=== PATIENT | male | born 1955 | race Caucasian/White ===

== ENCOUNTER 2018-08-28 05:30 | Inpatient (IN) | payer OTHER ==
[2018-08-28] MEDS: TRANEXAMIC ACID 1,000 MG in NS 100 ML INTRA-OP X1 IVPB (06:00)
[2018-08-28] MEDS: TRANEXAMIC ACID 1,000 MG in NS 100 ML PRE-OP X1 IVPB (06:00)
[2018-08-28] MEDS: CEFAZOLIN 1 GM/50 ML (PMX) 50 ML IVPB ×4 (06:00→23:50)
[2018-08-28] MEDS: HIP PAIN COCKTAIL (CEFUROXIME) INJ ×2 (06:00→08:22)
[2018-08-28] MEDS: ONDANSETRON 4 MG INJ IV ×4 (06:07→19:22)
[2018-08-28] MEDS: LANSOPRAZOLE 30 MG CAP PO (06:07)
[2018-08-28] MEDS: ACETAMINOPHEN 1000MG/100ML IV 100 ML IVPB (06:07)
[2018-08-28] MEDS: DEXAMETHASONE 4 MG/ML 1 ML INJ IV (06:07)
[2018-08-28] MEDS: oxyCODONE (CR) 10 MG TAB [oxyCONTIN] PO (06:08)
[2018-08-28] MEDS: LACTATED RINGER'S 1,000 ML IV* (06:09)
[2018-08-28] MEDS ORDERED: LIDOCAINE 2% (SDV) 5 ML INJ (07:29)
[2018-08-28] MEDS ORDERED: PROPOFOL 20 ML (07:29)
[2018-08-28] MEDS ORDERED: CEFAZOLIN 1 GM INJ (07:29)
[2018-08-28] MEDS ORDERED: DIPHENHYDRAMINE 50 MG INJ IV ×2 (08:00→12:00)
[2018-08-28] MEDS ORDERED: MAGNESIUM HYDROXIDE 30ML CUP PO (08:00)
[2018-08-28] MEDS ORDERED: oxyCODONE 5 MG TAB PO ×2 (08:00)
[2018-08-28] MEDS ORDERED: SENNA/DOCUSATE NA (8.6MG/50MG) TAB PO (08:00)
[2018-08-28] MEDS ORDERED: BETHANECHOL 25 MG TAB PO (08:00)
[2018-08-28] MEDS ORDERED: BISACODYL 10 MG SUPP PR (08:00)
[2018-08-28] MEDS ORDERED: NALOXONE (0.4 MG/ML) INJ IV (08:00)
[2018-08-28] MEDS: DOCUSATE SODIUM 100 MG CAP PO (08:00)
[2018-08-28] MEDS ORDERED: NA PHOSPHATE/BIPHOS 133 ML ENEMA PR (08:00)
[2018-08-28] MEDS ORDERED: EPHEDrine SULFATE 50 MG/5 ML SYG (08:08)
[2018-08-28] MEDS: BACITRACIN 50000 UNITS INJ IRR (08:21)
[2018-08-28] MEDS: POLYMYXIN B 500000 UNIT INJ (08:21)
[2018-08-28] MEDS: POLYMYXIN/BACITRACIN 1L IRRIG IRR (08:21)
[2018-08-28] MEDS ORDERED: POLYMYXIN/BACITRACIN 1L IRRIG (08:39)
[2018-08-28] MEDS: ASPIRIN (EC) 325 MG TAB PO ×3 (09:00→21:05)
[2018-08-28] MEDS: GABAPENTIN 100 MG CAP PO ×2 (09:00→21:05)
[2018-08-28] MEDS ORDERED: ROPIVACAINE 0.5 % 30 ML VIAL (09:28)
[2018-08-28] MEDS ORDERED: ONDANSETRON 4 MG INJ (09:29)
[2018-08-28] MEDS ORDERED: MEPERIDINE 25 MG INJ (10:20)
[2018-08-28] MEDS ORDERED: HYDROmorphONE 1 MG/ML SYG (10:30)
[2018-08-28] MEDS: FENTAnyl 50 MCG/ML VIAL IV ×8 (11:10→11:40)
[2018-08-28] MEDS: HYDROmorphONE 1 MG/5 ML IV SYRINGE IV ×5 (11:30→11:50)
[2018-08-28] MEDS ORDERED: LABETALOL HCL 20MG INJ IV ×2 (11:30→12:00)
[2018-08-28] MEDS ORDERED: ONDANSETRON 4 MG INJ IV ×2 (11:30→12:00)
[2018-08-28] MEDS ORDERED: EPHEDrine SULFATE 50 MG/5 ML SYG IV ×2 (11:30→12:00)
[2018-08-28] MEDS ORDERED: hydrALAzine 20 MG INJ IV ×2 (11:30→12:00)
[2018-08-28] MEDS ORDERED: MIDAZOLAM 1 MG/ML 2 ML INJ IV (12:00)
[2018-08-28] MEDS ORDERED: FENTAnyl 50 MCG/ML VIAL IV ×3 (12:00)
[2018-08-28] MEDS ORDERED: MEPERIDINE 25 MG INJ IV (12:00)
[2018-08-28] MEDS ORDERED: HYDROmorphONE 1 MG/5 ML IV SYRINGE IV ×3 (12:00)
[2018-08-28] MEDS ORDERED: METOCLOPRAMIDE 10 MG INJ IV (12:00)
[2018-08-28] MEDS ORDERED: OXYCODONE/ACETAMINOPHEN (5/325) TAB PO ×2 (12:00)
[2018-08-28] MEDS: SOD CHLORIDE 0.9% 1,000 ML IV ×2 (15:35→19:22)
[2018-08-28] MEDS: ATORVASTATIN 10 MG TAB PO (21:04)
[2018-08-28] MEDS: oxyCODONE 5 MG TAB PO (21:05)
[2018-08-29] MEDS: ONDANSETRON 4 MG INJ IV (01:37)
[2018-08-29 05:27] LABS: ADD MAN DIFF? NO
[2018-08-29 05:31] LABS: WHITE BLOOD COUNT 12.5 10^3/ul (4.8-10.8)
[2018-08-29 05:31] LABS: BASOPHILS % 0.1 % (0.0-2.0); HEMATOCRIT 33.4 % (42.0-52.0); HEMOGLOBIN 11.4 g/dl (14.0-18.0); LYMPHOCYTES # 1.4 10^3/ul (0.8-2.9); LYMPHOCYTES % 10.8 % (15.0-51.0); MEAN CORPUSCULAR HEMOGLOBIN 30.3 pg (29.0-33.0); MEAN CORPUSCULAR HGB CONC 34.1 g/dl (32.0-37.0); MEAN CORPUSCULAR VOLUME 88.8 fl (82.0-101.0); MEAN PLATELET VOLUME 10.1 fl (7.4-10.4); MONOCYTE # 0.8 10^3/ul (0.3-0.9); MONOCYTES % 6.6 % (0.0-11.0); NEUTROPHIL # 10.3 10^3/ul (1.6-7.5); NEUTROPHILS % 82.1 % (39.0-77.0); PLATELET COUNT 205 10^3/UL (140-415); RED BLOOD COUNT 3.76 10^6/ul (4.70-6.10); RED CELL DISTRIBUTION WIDTH 13.2 % (11.5-14.5)
[2018-08-29 06:35] LABS: ANION GAP 10 (8-16); BLOOD UREA NITROGEN 18 mg/dl (7-20); CALCIUM 8.4 mg/dl (8.4-10.2); CARBON DIOXIDE 24 mmol/L (21-31); CHLORIDE 109 mmol/L (97-110); GLUCOSE 149 mg/dl (70-220); POTASSIUM 4.7 mmol/L (3.5-5.1); SODIUM 138 mmol/L (135-144)
[2018-08-29 06:50] LABS: ADD UMIC YES; UR ASCORBIC ACID NEGATIVE (NEGATIVE); UR BILIRUBIN (Dip) NEGATIVE (NEGATIVE); UR BLOOD (Dip) 3+ mg/dL (NEGATIVE); UR CLARITY CLEAR (CLEAR); UR COLOR YELLOW (YELLOW); UR GLUCOSE (Dip) NEGATIVE (NEGATIVE); UR KETONES (Dip) NEGATIVE (NEGATIVE); UR LEUKOCYTE ESTERASE (Dip) NEGATIVE Leu/ul (NEGATIVE); UR MUCUS FEW /HPF (NONE SEEN); UR NITRITE (Dip) NEGATIVE (NEGATIVE); UR RBC > 182 /HPF (0-5); UR SPECIFIC GRAVITY (Dip) 1.028 (1.003-1.030); UR TOTAL PROTEIN (Dip) NEGATIVE (NEGATIVE); UR UROBILINOGEN (Dip) NEGATIVE (NEGATIVE); UR WBC 2 /HPF (0-5)
[2018-08-29] MEDS: SOD CHLORIDE 0.9% 1,000 ML IV (07:38)
[2018-08-29] MEDS: ASPIRIN (EC) 325 MG TAB PO (08:55)
[2018-08-29] MEDS: CELECOXIB 200 MG CAP PO (08:55)
[2018-08-29] MEDS: FERROUS FUMARATE (SR) TAB PO (08:56)
[2018-08-29] MEDS: GABAPENTIN 100 MG CAP PO (08:56)
[2018-08-29] MEDS: DOCUSATE SODIUM 100 MG CAP PO (08:56)
[2018-08-29] MEDS: AMLODIPINE 5 MG TAB PO (08:57)
[2018-08-29 10:01] LABS: CHOL/HDL RATIO 5.5 RATIO; HDL CHOLESTEROL 31 mg/dl (30-78); LDL CHOLESTEROL,CALCULATED 96 mg/dl; TRIGLYCERIDES 229 mg/dl (0-149)
[2018-08-29 10:01] LABS: CHOLESTEROL 173 mg/dl (100-200)
[2018-08-30] MEDS ORDERED: PANTOPRAZOLE (EC) 40 MG TAB PO (06:00)
== END 2018-08-29 14:21 | disposition home health service (06) | DRG 470 ==
LOC: REC 05:30 → MS1 11:31
PROC: 0SRC069 Replacement of Right Knee Joint with Oxidized Zirconium on Polyethylene Synthetic Substitute, Cemented, Open Approach (ICD-10-PCS; principal; 2018-08-28 07:23)
DX: M17.11 Unilateral primary osteoarthritis, right knee (principal); I10 Essential (primary) hypertension; E78.5 Hyperlipidemia, unspecified; E66.9 Obesity, unspecified; Z68.32 Body mass index [BMI] 32.0-32.9, adult
CPT/HCPCS: 73560; 80048; 80061; 81001; 85025; 87081; 87086; 88304; 88311; 97116; 97161; 97167; 97530

== ENCOUNTER → 2019-05-24 | Emergency (ER) | payer OTHER ==
[~2019-05-24] MED LIST: HYDROCODONE/APAP (5/325) TAB; HYDROCODONE/APAP (5/325) TAB PO
[2019-05-24] MEDS: HYDROCODONE/APAP (5/325) TAB PO (19:59)
[2019-05-24 20:34] LABS: UR CLARITY SLIGHTLY CLOUDY (CLEAR); UR COLOR YELLOW (YELLOW); UR SPECIFIC GRAVITY (Dip) 1.023 (1.003-1.030)
[2019-05-24 20:35] LABS: ADD UMIC YES; UR BILIRUBIN (Dip) NEGATIVE (NEGATIVE); UR BLOOD (Dip) 3+ mg/dL (NEGATIVE); UR GLUCOSE (Dip) NEGATIVE (NEGATIVE); UR KETONES (Dip) NEGATIVE (NEGATIVE); UR LEUKOCYTE ESTERASE (Dip) NEGATIVE Leu/ul (NEGATIVE); UR NITRITE (Dip) POSITIVE (NEGATIVE); UR TOTAL PROTEIN (Dip) NEGATIVE (NEGATIVE); UR UROBILINOGEN (Dip) NEGATIVE (NEGATIVE); UR WBC 16 /HPF (0-5)
[2019-05-24 20:36] LABS: UR BACTERIA FEW /HPF (NONE SEEN); UR MUCUS MODERATE /HPF (NONE SEEN); UR RBC > 182 /HPF (0-5)
== END | disposition home or self-care (01) ==
LOC: FTE 17:14
DX: N41.0 Acute prostatitis (principal); I10 Essential (primary) hypertension; E66.9 Obesity, unspecified; Z68.31 Body mass index [BMI] 31.0-31.9, adult
CPT/HCPCS: 76870; 81001; 87086; 99284-25